=== PATIENT | female | born 1995 | race Hispanic/Latino ===

== ENCOUNTER 2018-01-14 00:48 | Emergency (ER) | payer OTHER ==
--- NOTE | 2018-01-14 02:33 | ED PDOC ---
HPI: Abdomen Time Seen by Provider: 01/14/18 01:05 Chief Complaint (Nursing): Abdominal Pain Chief Complaint (Provider): Abdominal Pain History Per: Patient History/Exam Limitations: no limitations Onset/Duration Of Symptoms: Days (x 4) Additional Complaint(s): 22-year-old female presents to ED complaining of abdominal pain for 4 days. Pain is constant. Reports pain originally started in LLQ, but today pain is in RLQ. Reports 1 episode of non-bloody, non-bilious vomiting. Pain is severe. Patient denies taking anything for medication. (-) fever, (-) back pain, (-) urinary problems, (-) chest pain, (-) loss of consciousness. States has vaginal discharge. Patient states she never had similar pain like this before. Patient reports she was seen by OBGYN last week for physical exam. PMD: Batsheva Rosa. Past Medical History Reviewed: Historical Data, Nursing Documentation, Vital Signs Vital Signs: Last Vital Signs Temp 97.9 F 01/14/18 06:29 Pulse 93 H 01/14/18 06:29 Resp 17 01/14/18 06:29 BP 124/65 01/14/18 06:29 Pulse Ox 98 01/14/18 06:29 - Medical History PMH: No Chronic Diseases - Surgical History Surgical History: No Surg Hx - Family History Family History: States: Unknown Family Hx - Social History Current smoker - smoking cessation education provided: No Alcohol: None Drugs: Denies - Home Medications Home Medications: Ambulatory Orders Medication Instructions Recorded Ibuprofen [Motrin] 600 mg PO Q8 PRN #20 tab 01/14/18 - Allergies Allergies/Adverse Reactions: Allergies Allergy/AdvReac Type Severity Reaction Status Date / Time amoxicillin Allergy Verified 01/14/18 01:31 Review of Systems ROS Statement: Except As Marked, All Systems Reviewed And Found Negative Constitutional: Negative for: Fever Gastrointestinal: Positive for: Vomiting (non-bloody, non-bilious), Abdominal Pain Genitourinary Female: Positive for: Vaginal Discharge. Negative for: Dysuria, Hematuria, Vaginal Bleeding Musculoskeletal: Negative for: Back Pain Physical Exam - Reviewed Nursing Documentation Reviewed: Yes Vital Signs Reviewed: Yes - Physical Exam Appears: Positive for: No Acute Distress Head Exam: Positive for: ATRAUMATIC, NORMAL INSPECTION, NORMOCEPHALIC Skin: Positive for: Normal Color, Warm, Dry Eye Exam: Positive for: Normal appearance, EOMI, PERRL ENT: Positive for: Normal ENT Inspection Neck: Positive for: Normal Cardiovascular/Chest: Positive for: Tachycardia (Regular rate) Respiratory: Positive for: Normal Breath Sounds. Negative for: Respiratory Distress Gastrointestinal/Abdominal: Positive for: Tenderness (Lower abdomen tenderness throughout (RLQ tendenress is more signficant). Suprapubic tenderness), Guarding (RLQ ). Negative for: Distended Back: Positive for: Normal Inspection Extremity: Positive for: Normal ROM Neurologic/Psych: Positive for: Alert, Oriented (x 3) - Laboratory Results Result Diagrams: 01/14/18 02:54 01/14/18 02:54 Urine POC: Negative - ECG O2 Sat by Pulse Oximetry: 100 (RA) Pulse Ox Interpretation: Normal - Progress Re-evaluation Time: 06:00 Condition: Re-examined, Improved Medical Decision Making Medical Decision Making: Time: 01:34 Impression(s): Abdominal Pain (Patient is not ) Differentials include, but not limited to: Ovarian Torsion, Ovarian cyst rupture , Acute appendicitis, kidney stones; consider conditions such as UTI, Pelvic Inflammatory Disease Plan: - EKG - CMP - Lipase - NPO Diet - ED Urine - ED Urine Dipstick - CBC (with differentials) Time: 01:37 - Type and Screen - Toradol 15 mg IVP STAT - Blood culture - Transvaginal Ultrasound Time: 03:03 Transvaginal Ultrasound FINDINGS: The uterus is normal and measures 7 x 3 x 5 cm. The endometrium measures 10 mm. The right ovary is normal. There is a complex 1.7 cm cyst in the left ovary. Color flow and doppler vascular waveforms were demonstrated to both ovaries. There is a moderate amount of complex free fluid in the cul-de-sac. IMPRESSION: Complex cystic lesion in the left ovary for which short-term followup ultrasound is recommended to ensure resolution Time: 03:04 - CT Abdomen and Pelvis with IV Contrast 04:11 CT Abdomen and Pelvis with IV Contrast FINDINGS: Umbilical ring. The liver, spleen, gallbladder, kidneys and pancreas are normal. The bowel appears normal. A normal appendix is identified axial images 107 through 119, coronal images 36 through 42. There is a small amount of perisplenic fluid and a small amount of fluid along the inferior hepatic edge. There is a moderate amount of free fluid in the pelvis greater than would be considered a normal physiologic amount. The uterus appears normal. Right ovarian follicles are present. There is a large complex cystic mass in the left adnexa. The appearance of central fluid density surrounded by a soft tissue rim corresponds to that seen on ultrasound, however the measurements are slightly larger on CT with the central cystic component measuring 2 x 3.5 cm and the entire structure measuring 4.2 x 5.5 cm. Without a reported negative test, the appearance, in combination with the amount of fluid, would be concerning for ectopic . Without demonstration of flow on both ultrasound and CT, the appearance, in combination with the amount of fluid, would be concerning for ovarian torsion. Given ellimination of the above entities, findings are felt to represent complex partially ruptured cyst. However , depending on clinical symptoms, consultation with gynecology may be helpful. IMPRESSION: Normal appendix. Complex cystic structure left adnexa with moderate free fluid in the pelvis as well as a small amount of free fluid in the abdomen. Please see extensive discussion in the body of the report Scribe Attestation: Documented by Lino Calix, acting as a scribe for Gualberto Wilkinson MD. Provider Scribe Attestation: All medical record entries made by the Scribe were at my direction and personally dictated by me. I have reviewed the chart and agree that the record accurately reflects my personal performance of the history, physical exam, medical decision making, and the department course for this patient. I have also personally directed, reviewed, and agree with the discharge instructions and disposition. Disposition - Clinical Impression Clinical Impression: Abdominal pain, Ovarian cyst, Ruptured cyst of ovary - Patient ED Disposition Is Patient to be Admitted: No - Disposition Referrals: [facility] [Outside] Disposition: Routine/Home Disposition Time: 06:06 Condition: IMPROVED Additional Instructions: Take motrin for pain. Follow up with your PCP in 4-5 days. Prescriptions: Ibuprofen [Motrin] 600 mg PO Q8 PRN #20 tab PRN Reason: Pain, Severe (8-10) Instructions: Ovarian Cysts
[2018-01-14 02:59] LABS: BASO % 0.2 % (0.0-2.0); HEMOGLOBIN 12.5 g/dL (12.0-16.0); LYMPH % 10.9 % (20.0-40.0); MEAN CELL VOLUME 91.3 fl (81.0-99.0); MEAN CORPUSCULAR HEMOGLOBIN 31.4 pg (27.0-31.0); MEAN CORPUSCULAR HGB CONC 34.4 g/dL (33.0-37.0); MEAN PLATELET VOLUME 8.6 fl (7.2-11.7); MONO # 0.5 K/uL (0.0-0.8); MONO % 5.6 % (0.0-10.0); NEUT # 7.9 K/uL (1.8-7.0); NEUT % 83.3 % (50.0-75.0); RBC 3.97 Mil/uL (3.80-5.20); RED CELL DISTRIBUTION WIDTH 14.1 % (11.5-14.5); WHITE BLOOD COUNT 9.4 K/uL (4.8-10.8)
--- NOTE | 2018-01-14 03:04 | US ---
EXAM: US Pelvis, Transvaginal EXAM DATE/TIME: 01/14/2018 1:37 AM CLINICAL HISTORY: 22 years old, female; Pain; Pelvic pain; Additional info: Rlq pain pelvic pain TECHNIQUE: Real-time transvaginal pelvic ultrasound (complete) with image documentation. Transvaginal imaging was used for better evaluation of the endometrium and adnexa. COMPARISON: No relevant prior studies available. FINDINGS: The uterus is normal and measures 7 x 3 x 5 cm. The endometrium measures 10 mm. The right ovary is normal. There is a complex 1.7 cm cyst in the left ovary. Color flow and doppler vascular waveforms were demonstrated to both ovaries. There is a moderate amount of complex free fluid in the cul-de-sac. IMPRESSION: Complex cystic lesion in the left ovary for which short-term followup ultrasound is recommended to ensure resolution.
[2018-01-14 03:05] LABS: ALB/GLOB RATIO 1.4 (1.0-2.1); ALBUMIN 4.3 g/dL (3.5-5.0); ALT/SGPT 29 U/L (9-52); AST/SGOT 26 U/L (14-36); BLOOD UREA NITROGEN 17 mg/dl (7-17); CALCIUM 9.3 mg/dL (8.4-10.2); GFR AFRICAN-AMERICAN > 60; GFR NON-AFRICAN AMERICAN > 60; LIPASE 103 U/L (23-300)
[2018-01-14] MEDS ORDERED: Iohexol 300 100 ML IJ ONE (03:17)
[2018-01-14] MEDS ORDERED: Sodium Chloride 0.9% 100 ML ONE (03:17)
--- NOTE | 2018-01-14 04:11 | CT ---
EXAM: CT Abdomen and Pelvis With Intravenous Contrast EXAM DATE/TIME: 01/14/2018 3:04 AM CLINICAL HISTORY: 22 years old, female; Pain; Abdominal pain; Localized; Right lower quadrant (rlq); Additional info: Rlq pain left ovarian cyst TECHNIQUE: Axial computed tomography images of the abdomen and pelvis with intravenous contrast. All CT scans at this facility use one or more dose reduction techniques, viz.: automated exposure control; ma/kV adjustment per patient size (including targeted exams where dose is matched to indication; i.e. head); or iterative reconstruction technique. Coronal and sagittal reformatted images were created and reviewed. CONTRAST: 90 mL of [id number] administered intravenously. COMPARISON: US - TRANSVAGINAL 2018-01-14 01:45 FINDINGS: Umbilical ring. The liver, spleen, gallbladder, kidneys and pancreas are normal. The bowel appears normal. A normal appendix is identified axial images 107 through 119, coronal images 36 through 42. There is a small amount of perisplenic fluid and a small amount of fluid along the inferior hepatic edge. There is a moderate amount of free fluid in the pelvis greater than would be considered a normal physiologic amount. The uterus appears normal. Right ovarian follicles are present. There is a large complex cystic mass in the left adnexa. The appearance of central fluid density surrounded by a soft tissue rim corresponds to that seen on ultrasound, however the measurements are slightly larger on CT with the central cystic component measuring 2 x 3.5 cm and the entire structure measuring 4.2 x 5.5 cm. Without a reported negative test, the appearance, in combination with the amount of fluid, would be concerning for ectopic . Without demonstration of flow on both ultrasound and CT, the appearance, in combination with the amount of fluid, would be concerning for ovarian torsion. Given ellimination of the above entities, findings are felt to represent complex partially ruptured cyst. However , depending on clinical symptoms, consultation with gynecology may be helpful. IMPRESSION: Normal appendix. Complex cystic structure left adnexa with moderate free fluid in the pelvis as well as a small amount of free fluid in the abdomen. Please see extensive discussion in the body of the report.
[2018-01-14 06:30] VITALS: BP 124/65; PULSE 93; RESP 17; TEMP 97.9
--- NOTE | 2018-01-14 13:00 | CARD ---
APPROVED REPORT EKG Measurement Heart [id number] <Conclusion> Sinus tachycardia Nonspecific T wave abnormality Abnormal ECG
[2018-01-14 22:36] VITALS: O2SAT 100
== END 2018-01-14 06:32 | disposition home or self-care (01) ==
LOC: H.ER 00:48
DX: N83.201 Unspecified ovarian cyst, right side (principal); N83.202 Unspecified ovarian cyst, left side
CPT/HCPCS: 74177; 76830; 80053; 81025; 83690; 85025; 86850; 86900; 87040; 93005; 96374; 99283; J1885; Q9967